=== PATIENT | female | born 1930 | race Caucasian/White ===

== ENCOUNTER 2016-09-17 13:57 | Inpatient (IN) | payer OTHER ==
[~2016-09-17] VITALS: Ht 152.4 cm; Wt 65.9 kg
--- NOTE | ~2016-09-17 | HC ---
[facility] [place] [address] [place] [address] CONSULTATION Name: CAREY NIELSON Room #: 513-P ADM IN M.R.#: [id number] Admission: 09/17/16 Attend Phys: Rosales Lopez MD Discharge: Date of : 31 Report #: [id number] THIS REPORT FOR: //name// CC: Rosales Lopez FAM unknown NEUROPSYCHOLOGY CONSULTATION CONSULTING PHYSICIAN: Rosales Vazquez, PhD. REASON FOR ADMISSION: The patient recently was diagnosed with a small acute right pontine stroke following altered mental status, near syncope, confusion and left-sided weakness. She was hospitalized at [facility] on 09/10/2016 and then transferred to the rehabilitation unit at [facility] on 09/17/2016 for a comprehensive rehabilitation program. The assessment as documented in the history and physical by Dr. Lopez includes the followin. Acute right pontine stroke. 2. Mild left-sided hemiparesis. 3. Mild left-sided neglect. 4. Gait instability with some ataxia. 5. Premorbid Alzheimer disease, functioning in the community with family. 6. Near syncope. 7. Diabetes mellitus type 2. 8. Essential hypertension. 9. Acute kidney injury, reported to be resolved. 10. Acute urinary tract infection, reported to be resolved. METHODS: The chart was reviewed and the unit staff were consulted, and the patient was interviewed in her room. She was accompanied by her adult daughter, with whom she has lived since her some 7-8 years ago. Daughter's name is Kathia. Kathia reports that the patient has limited functionality at home, participating in drying dishes and folding clothes with supervision and essentially unable to engage in any other meaningful tasks. She spends her time working puzzle books and reading books and magazines; and during the examination, she repeatedly went back to looking at a puzzle book or attempting to read a magazine while this commercial underwriter tried to engage her. FINDINGS: It was noted that the patient was not at all well oriented, and that her memory for not only recent events, but for personal past events was very limited. She could remember that she had 3 children, but could not remember the names or numbers of her grandchildren. She could not remember her past employment. Kathia, her daughter, stated that she does not go anywhere independently as she has wandered off in the past while shopping and cannot be relied upon to remain in one place or to find her way back. The patient is reported to be a high-school graduate, who worked for many years at the [employer] facility in [place], [place] before retiring. [address] [address] CONSULTATION Name: CAREY NIELSON Claudine Room #: 513-P [facility] IN .R.#: [id number] Admission: 09/17/16 Attend Phys: Rosales Lopez MD Discharge: Date of : 31 Report #: [id number] The mini mental status exam 2 was utilized and the patient scored in the extremely low range, with deficits in orientation to time and place, inability to recall any previously registered words, inability to perform any arithmetic calculations, inability to follow more than one step of a 3-step direction, inability to write a complete sentence and inability to copy a simple drawing. Repetition and naming were intact. SUMMARY: The patient presents as an 85-year-old white female who was pleasant, but difficult to engage in conversation, with severe dementia. Diagnosis of major neurocognitive disorder due to multiple etiologies including Alzheimer disease and vascular accident is warranted. For the time being, her daughter, with whom she lives, believes herself capable of managing her mother's needs and safety, should she be able to return to her prior level of function before the recent stroke. <ELECTRONICALLY SIGNED> By: Rosales Vazquez, PhD 09/19/16 1138 1754 0031 Rosales Vazquez, PhD /nt
--- NOTE | ~2016-09-17 | H ---
[facility] [place] [address] HISTORY AND PHYSICAL Name: CAREY NIELSON Claudine Room #: 513-P ADM IN M.R.#: [id number] Admission: 09/17/16 Attend Phys: Rosales Lopez MD Discharge: Date of : 31 Report #: [id number] THIS REPORT FOR: //name// CC: Rosales AJ unknown DATE OF SERVICE: 09/17/[address] [facility] discharge order report, the cardiac monitoring Zio patch will need to be followed up with Dr. Nobles post-discharge. <ELECTRONICALLY SIGNED> By: Rosales Lopez MD 09/23/16 1617 0818 0844 Rosales Lopez MD /nt
--- NOTE | ~2016-09-17 | H ---
[facility] [place] [address] [place] [address] HISTORY AND PHYSICAL Name: CAREY NIELSON Room #: 513-P ADM IN M.R.#: [id number] Admission: 09/17/16 Attend Phys: Rosales Lopez MD Discharge: Date of : 31 Report #: [id number] THIS REPORT FOR: //name// CC: Rosales Lopez [facility] unknown DATE OF SERVICE: 09/17/2016 HISTORY OF PRESENT ILLNESS: The patient is an 85-year-old white female who was originally admitted to [facility] on 09/10/2016 with confusion and mental status changes. She has a history of hypertension, diabetes mellitus, Alzheimer's dementia, who presented with new altered mental status, near syncope and fall prior to admission. Daughter reported the patient started on new combined dementia medication 2 weeks prior to admission by her neurologist and was instructed to stop the medication if she noted any mentation changes. At that time, Namenda and Aricept were both discontinued. One week prior to admission, the patient had been on the new medication for a week. The daughter began to notice that the patient was more confused and had difficulty with ambulation. The day prior to her [facility] admission, she was showering the patient and the patient had a near syncopal episode. At that time, the daughter noticed that the patient had left-sided weakness, seemed dazed, diaphoretic. Daughter continued to notice the left-sided weakness. She was brought through the emergency department. CT showed no acute findings, but MRI revealed the small acute right pontine stroke. She was seen by neurology and aspirin was changed to Plavix. She was also seen by cardiology for near syncope and there was a note of the plan to have outpatient quality assurance monitor placed prior to discharge. Her insulin was discontinued due to hypoglycemia. The patient was felt to be medically ready for transfer for acute in-hospital inpatient rehabilitation. PAST MEDICAL HISTORY: Includes insulin-dependent diabetes mellitus, history of some dementia as noted above, hyperlipidemia, history of colon polyp, history of hypoglycemic episodes. MEDICATIONS: Please see the full medication listing which was reconciled upon admission. FAMILY HISTORY: Noncontributory and unable to fully obtaine. SOCIAL HISTORY: Lives at home with daughter and son, 10-12 steps in, then stairs on the main level. Prior to the stroke, the daughter only provided cues for the patient with her dementia. She now has been needing moderate assistance. REVIEW OF SYSTEMS: Did not offer any current complaints of chest pain, shortness of breath or abdominal discomfort. [address] [address] HISTORY AND PHYSICAL Name: CAREY NIELSON Room #: 513-P [facility] IN ..#: [id number] Admission: 09/17/16 Attend Phys: Rosales Lopez MD Discharge: Date of : 31 Report #: [id number] PHYSICAL EXAMINATION: GENERAL: The patient is a pleasant 85-year-old white female in no obvious distress. VITAL SIGNS: Last recorded temperature 98.4, pulse 57, respirations 18, blood pressure 172/59. NEUROLOGIC: The patient is alert. She will follow basic 1 step commands without difficulty. She seemed appropriate with basic conversation. HEENT: Facies appeared to be symmetric. CHEST: Sounded clear to auscultation. CARDIOVASCULAR: Regular rate and rhythm. ABDOMEN: Bowel sounds positive, nontender. GENITOURINARY AND RECTAL: Deferred. EXTREMITIES: Left upper extremity appears to have some slight distal weakness greater at a 4-/5, proximally she is more of 4/5. Left lower extremity is a 4/5, right lower extremity is 4+, right upper extremity is 4+. Appears to have some mild left-sided neglect, was unable to tell me the correct year. From a functional perspective, she has been needing moderate assistance. We will be evaluating her with the rehab program. ASSESSMENT: An 85-year-old white female with the following problem list: 1. Acute right pontine stroke. 2. Mild left-sided hemiparesis. 3. Mild left-sided neglect. 4. Gait instability with some ataxia that has been noted. 5. Premorbid Alzheimer disease, but functioning in the community with family. 6. Near syncope. 7. Diabetes mellitus type 2. 8. Essential hypertension. 9. Acute kidney injury, which was noted to be resolved at [facility]. 10. Acute urinary tract infection noted to be resolved at [facility]. PLAN: The patient is admitted for acute in-hospital inpatient rehabilitation. From a postadmission physician evaluation perspective, there are no relevant changes since the preadmission screening. Please see the above review of prior and current medical and functional conditions and comorbidities. Please see the patient's prior and current functional status. As far as risk of complications, the patient does have the multiple medical comorbidities as noted above. Initial plan of care involves the interdisciplinary acute inpatient rehabilitation program with the goal of maximizing the patient's functional independence. Measurable functional goals would be for her to become modified independent with transfers, mobility and ADL issues at least at the walker level, so that she can return back home with her daughter. Goal is to return as close is possible to her prior functional level, so that her daughter can again care for her in the home. Prognosis is reasonably good with estimated length of stay probably at least one to two weeks, but we will need to see how she does. [facility] [place] [place] [address] HISTORY AND PHYSICAL Name: CAREY NIELSON Claudine Room #: 513-P ADM IN .R.#: [id number] Admission: 09/17/16 Attend Phys: Rosales Lopez MD Discharge: Date of : 31 Report #: [id number] Potential barriers would include her multiple medical comorbidities and decreased functional status. [facility] discharge [facility], the patient is to follow up with her primary physician, Dr. Dunham when discharged from the rehab [facility]. <ELECTRONICALLY SIGNED> By: Rosales Lopez MD 09/23/16 1617 0812 1015 Rosales Lopez MD /nt
--- NOTE | ~2016-09-17 | PLAN ---
[facility] [place] [address] [place] [address] REHAB UNIT PLAN OF CARE Name: CAREY NIELSON Room #: 513-P ADM IN M.R.#: [id number] Admission: 09/17/16 Attend Phys: Rosales Lopez MD Discharge: Date of : 31 Report #: [id number] THIS REPORT FOR: //name// CC: Rosales Lopez [facility] unknown DATE OF SERVICE: 09/19/2016 The patient is seen back in followup. She is pleasant, in no distress. Last recorded temp 98.6, pulse 58, respirations 16, blood pressure 196/62. Facies appeared to be symmetric. No focal calf swelling. Transfers are min assist. Gait is contact guard 75 feet with a front-wheeled walker. She did go up and down 4 steps with min assist. In occupational therapy, upper body dressing was min assist, lower body is mod assist. In speech therapy, she has mild to moderate comprehensive deficits. She has mild expressive deficits. ASSESSMENT: 1. Acute right pontine stroke. 2. Mild left-sided hemiparesis. 3. Mild left-sided neglect. 4. Gait instability with some ataxia that was noted. 5. Premorbid Alzheimer disease with functioning in the community. 6. Near syncope. 7. Diabetes mellitus type 2. 8. Essential hypertension. 9. Acute kidney injury noted to be resolved at [facility]/ 10. Acute urinary tract infection noted to be resolved at [facility]. PLAN: The overall plan of care is based on the preadmission screen, post-admission physician evaluation and information garnered from therapy assessments. 1. Estimated length of stay is probably at least 10 days to 2 weeks pending progress. 2. Medical prognosis is reasonably good. 3. Anticipated interventions include the interdisciplinary acute inpatient rehabilitation program. 4. Anticipated functional outcomes would be for the patient to become modified independent at the walker level to return back home. 5. Discharge destination would be back to the home setting with her daughter and son. 6. Expected therapy by discipline includes PT, OT and speech 1 hour per day each [address] [address] REHAB UNIT PLAN OF CARE Name: CAREY NIELSON Room #: 513-P [facility] [place] [facility]#: [id number] Admission: 09/17/16 Attend Phys: Rosales Lopez MD Discharge: Date of : 31 Report #: [id number] five days a week throughout the duration of the acute inpatient rehabilitation stay. <ELECTRONICALLY SIGNED> By: Rosales Lopez MD 09/23/16 1623 0925 1030 Rosales Lopez MD /nt
[2016-09-17 15:10] VITALS: BP 162/41
[2016-09-17] MEDS ORDERED: PLAVIX 75 MG TA75 M1 PO (15:34)
[2016-09-17] MEDS ORDERED: TYLENOL325 MG PO (15:35)
[2016-09-17] MEDS ORDERED: AMLODIPINE BESY10 MG PO (15:36)
[2016-09-17] MEDS ORDERED: ARICEPT 5 MG TAB5 MG PO (15:37)
[2016-09-17] MEDS ORDERED: CALCIUM 500 +1 EAC5 PO (15:38)
[2016-09-17] MEDS ORDERED: CRANBERRY425 MG PO (15:39)
[2016-09-17] MEDS ORDERED: VASOTEC10 MG PO (15:41)
[2016-09-17] MEDS ORDERED: LEXAPRO20 MG PO (15:43)
[2016-09-17] MEDS ORDERED: GLUCOSAMINE-CH1 EAC7 PO (15:47)
[2016-09-17] MEDS ORDERED: HYDRALAZINE 2525 MG PO (15:48)
[2016-09-17] MEDS ORDERED: MAGNESIUM OXID400 MG PO (15:49)
[2016-09-17] MEDS ORDERED: MEMANTINE PO (15:54)
[2016-09-17] MEDS ORDERED: MODAFINIL200 MG PO (15:55)
[2016-09-17] MEDS ORDERED: PRAVACHOL20 MG PO (15:57)
[2016-09-17] MEDS ORDERED: DAILY MULTIPLE1 EACH PO (15:57)
[2016-09-17] MEDS ORDERED: SYSTANE ULTRA 010 ML OPHTHALMIC (15:58)
[2016-09-18 04:45] LABS: HEMATOCRIT 34.1 % (37.0-47.0); HEMOGLOBIN 11.5 gm/dL (12.0-15.0); MCH 30.9 pg (26.0-34.0); MCHC 33.6 % (28.0-37.0); RBC 3.71 mil/uL (4.20-5.00); RDW 13.6 % (10.5-14.5)
[2016-09-18 05:06] LABS: CREATININE 1.1 mg/dL (0.6-1.3); POTASSIUM 3.9 mmol/L (3.5-5.1)
[2016-09-18 06:17] VITALS: BP 172/59
[2016-09-18 20:20] VITALS: BP 178/62
[2016-09-19 05:50] VITALS: BP 209/72
[2016-09-19 06:15] VITALS: BP 196/62
[2016-09-19 08:00] VITALS: BP 179/65
[2016-09-19 16:00] VITALS: BP 147/62
[2016-09-19 21:21] VITALS: BP 167/66
[2016-09-20 03:24] VITALS: BP 164/49
[2016-09-20 15:41] VITALS: BP 163/61
[2016-09-20 19:19] VITALS: BP 164/54
[2016-09-21 05:38] VITALS: BP 174/52
[2016-09-21 06:07] LABS: CALCIUM 9.2 mg/dL (8.5-10.1); CREATININE 1.4 mg/dL (0.6-1.3); POTASSIUM 4.2 mmol/L (3.5-5.1)
[2016-09-21 16:00] VITALS: BP 154/56
[2016-09-21 21:00] VITALS: BP 160/52
[2016-09-22 03:43] VITALS: BP 149/48
[2016-09-22 08:00] VITALS: BP 163/43
[2016-09-22 16:00] VITALS: BP 142/47
[2016-09-22 21:20] VITALS: BP 183/49
[2016-09-23 06:32] VITALS: BP 144/48
[2016-09-23 07:49] VITALS: BP 155/54
[2016-09-23 15:53] VITALS: BP 155/49
[2016-09-23 20:00] VITALS: BP 156/65
[2016-09-24 06:16] VITALS: BP 157/46
[2016-09-24 15:45] VITALS: BP 148/50
[2016-09-24 22:13] VITALS: BP 150/52
[2016-09-25 03:14] VITALS: BP 163/96
[2016-09-25 03:45] VITALS: BP 151/68
[2016-09-25 12:07] VITALS: BP 151/68
[2016-09-25 15:10] VITALS: BP 150/49
[2016-09-26 02:17] LABS: URINE BILIRUBIN NEGATIVE (Negative); URINE BLOOD NEGATIVE (Negative); URINE COLOR YELLOW; URINE GLUCOSE-RANDOM* NEGATIVE (Negative); URINE KETONES NEGATIVE (Negative); URINE LEUKOCYTES-REFLEX NEGATIVE (Negative); URINE PROTEIN (DIPSTICK) NEGATIVE (Negative); URINE SPECIFIC GRAVITY 1.015 (1.003-1.035); URINE UROBILINOGEN 0.2 E.U./dl (0.2-1.0)
[2016-09-26 07:04] VITALS: BP 154/43
[2016-09-26 09:11] VITALS: BP 158/41
[2016-09-26] MEDS ORDERED: MODAFINIL200 MG PO (10:50)
[2016-09-26] MEDS ORDERED: ARICEPT 5 MG TAB5 MG PO (10:50)
[2016-09-26 11:09] VITALS: BP 158/41
== END 2016-09-26 15:00 | disposition home health service (06) | DRG 65 ==
PROVIDERS: Family Medicine; Nurse Practitioner; Physical Medicine & Rehabilitation
DX: I63.8 Other cerebral infarction (principal); G81.94 Hemiplegia, unspecified affecting left nondominant side; R41.4 Neurologic neglect syndrome; R26.9 Unspecified abnormalities of gait and mobility; F02.80 Dementia in other diseases classified elsewhere, unspecified severity, without behavioral disturbance, psychotic disturbance, mood disturbance, and anxiety; I10 Essential (primary) hypertension; E11.9 Type 2 diabetes mellitus without complications; R55 Syncope and collapse; E78.5 Hyperlipidemia, unspecified; G30.8 Other Alzheimer's disease; Z79.4 Long term (current) use of insulin
CPT/HCPCS: 10112